=== PATIENT | male | born 1965 | race Two or more races ===

== ENCOUNTER 2021-06-23 11:59 | Inpatient (IN) | payer BC ==
[2021-06-23] MEDS ORDERED: MENTHOL/PHENOL 1 EACH UD MM PRN (14:32)
[2021-06-23] MEDS ORDERED: ONDANSETRON *ODT* 4 MG TABLET SL PRN (14:32)
[2021-06-23] MEDS ORDERED: MAG HYDROX/AL HYDROX/SIMETH 30 ML UNIT-DOSE CUP PO PRN (14:32)
[2021-06-23] MEDS ORDERED: IBUPROFEN 400 MG TABLET (FP) PO PRN (14:32)
[2021-06-23] MEDS ORDERED: MAGNESIUM HYDROX 2400MG/30ML ORAL SUSPENSION 30 ML CUP PO PRN (14:32)
[2021-06-23] MEDS ORDERED: METHOCARBAMOL 500 MG TABLET PO PRN (14:32)
[2021-06-23] MEDS ORDERED: MAGNESIUM CITRATE 300 ML BOTTLE PO PRN (14:32)
[2021-06-23] MEDS ORDERED: ACETAMINOPHEN 325 MG TABLET (FP) PO PRN ×2 (14:32)
[2021-06-23] MEDS ORDERED: BISMUTH SUBSALICYLATE 262 MG/15 ML BTL PO PRN (14:32)
[2021-06-23 15:19] VITALS: BMI 27.8
[2021-06-23] MEDS: MELATONIN 5 MG TABLETS PO SCH (23:35)
[2021-06-23] MEDS: PRENATAL VITAMINS W/ FOLIC ACID TABLET (FP) PO SCH (23:36)
[2021-06-23] MEDS: THIAMINE HCL 100 MG TABLET (FP) PO SCH (23:36)
[2021-06-24] MEDS: PRENATAL VITAMINS W/ FOLIC ACID TABLET (FP) PO SCH (11:00)
[2021-06-24 11:17] LABS: HEMATOCRIT 37.5 % (35.4-49); HEMOGLOBIN 12.2 GM/dL (11.7-16.9); MCH 32.3 pg (25.7-33.7); MCHC 32.6 g/dl (32.0-35.9); MEAN CELL VOLUME 98.9 fl (80-96); MEAN PLT VOLUME 9.6 fl (7.5-11.1); PLATELET COUNT 96 10^3/uL (134-434); RDW 12.8 % (11.9-15.9); WHITE BLOOD COUNT 4.2 K/mm3 (4.0-10.0)
[2021-06-24 11:37] LABS: CHLORIDE 101 mmol/L (98-107); SODIUM 138 mmol/L (136-145)
[2021-06-24 11:40] LABS: CALCIUM 8.3 mg/dL (8.5-10.1); GLUCOSE,RANDOM 119 mg/dL (74-106)
[2021-06-24 11:41] LABS: ALBUMIN 3.4 g/dl (3.4-5.0); BLOOD UREA NITROGEN 12.1 mg/dL (7-18); CO2 28 mmol/L (21-32)
[2021-06-24 11:44] LABS: CREATININE 0.9 mg/dL (0.55-1.3); SGOT/AST 67 U/L (15-37); SGPT/ALT 64 U/L (13-61)
[2021-06-24 11:45] LABS: TOT PROT 7.8 g/dl (6.4-8.2)
[2021-06-24 11:47] LABS: ALK PHOS 69 U/L (45-117)
[2021-06-24 11:56] LABS: ANION GAP 9 MMOL/L (8-16)
[2021-06-24] MEDS ORDERED: POTASSIUM CHLORIDE TABS 20 MEQ TABLET.ER (FP) PO ONE ×2 (13:12→18:00)
[2021-06-24] MEDS: MELATONIN 5 MG TABLETS PO SCH (22:37)
[2021-06-24] MEDS: THIAMINE HCL 100 MG TABLET (FP) PO SCH (22:37)
[2021-06-25] MEDS: PRENATAL VITAMINS W/ FOLIC ACID TABLET (FP) PO SCH (12:39)
[2021-06-25 14:00] VITALS: BP 110/68; PULSE 60; TEMP 97.1
== END 2021-06-25 07:14 | disposition home or self-care (01) | DRG 896 ==
LOC: YASAS 11:59 → Y3N 19:48 → UNDOADMIN 19:48
PROVIDERS: ADMIT Allergy & Immunology; ATTEND Allergy & Immunology
PROC: HZ2ZZZZ Detoxification Services for Substance Abuse Treatment (ICD-10-PCS; principal; 2021-06-23)
DX: F10.230 Alcohol dependence with withdrawal, uncomplicated (principal); U07.1 COVID-19; E87.6 Hypokalemia; Z96.652 Presence of left artificial knee joint; Z59.00 Homelessness unspecified
CPT/HCPCS: 36415; 80053; 84132; 85027; 86780; C9803; U0003; U0005